=== PATIENT | male | born 1970 | race Caucasian/White ===

== ENCOUNTER 2016-10-22 12:22 | Emergency (ER) | payer MEDICAID ==
[~2016-10-22] VITALS: Ht 172.7 cm; Wt 70.0 kg
[2016-10-22] MEDS ORDERED: ONDANSETRON HCL 4MG/2ML VIAL IV ONE (13:30)
[2016-10-22] MEDS ORDERED: SODIUM CHLORIDE 0.9% 1,000 ML IV ONE (13:30)
[2016-10-22 14:25] LABS: BASOPHILS % 0.2 % (0.0-2.0); HEMATOCRIT. 41.1 % (42.0-52.0); HEMOGLOBIN. 14.1 g/dL (14.0-18.0); MEAN CORPUSCULAR HEMOGLOBIN 31.2 pg (28.0-32.0); MEAN CORPUSCULAR VOLUME 90.8 fL (80.0-94.0); MEAN PLATELET VOLUME 9.4 fl (7.4-10.4); MONOCYTES % 5.5 % (2.0-8.0); NEUTROPHILS % 83.3 % (40.0-76.0); PLATELET 148 x1000/uL (130-400); RED BLOOD CELL COUNT 4.52 mill/uL (4.7-6.1); RED CELL DISTRIBUTION WIDTH 13.6 % (11.6-14.6)
[2016-10-22 14:31] LABS: CHLORIDE 107 mEq/L (98-107)
[2016-10-22 14:40] LABS: CARBON DIOXIDE 25 mEq/L (21-32)
[2016-10-22 16:27] LABS: CLARITY URINE CLEAR (CLEAR); COLOR URINE DARK YELLOW (YELLOW); GLUCOSE URINE NEGATIVE (NEGATIVE); KETONES URINE NEGATIVE (NEGATIVE); LEUKOCYTE ESTERASE URINE NEGATIVE (NEGATIVE); NITRITE URINE NEGATIVE (NEGATIVE); OCCULT BLOOD URINE NEGATIVE (NEGATIVE); PROTEIN URINE NEGATIVE (NEGATIVE); SPECIFIC GRAVITY URINE 1.031 (1.005-1.030); UROBILINOGEN URINE 0.2 E.U./dL (0.2-1.0)
[2016-10-22] MEDS ORDERED: LOPERAMIDE HCL 2MG CAPSULE PO ONE (16:30)
[2016-10-22 17:31] VITALS: BP 142/96
== END 2016-10-22 17:44 | disposition home or self-care (01) ==
LOC: ER 12:31
DX: K52.9 Noninfective gastroenteritis and colitis, unspecified (principal)
CPT/HCPCS: 36415; 80053; 81003; 85025; 93005; 96361; 96374; 99285; J2405; J7030; Z7610